=== PATIENT | male | born 1985 | race Caucasian/White ===

== ENCOUNTER 2017-10-14 17:09 | Emergency (ER) | payer MEDICAID, OTHER ==
[2017-10-14 17:16] VITALS: BP 124/87
[2017-10-14] MEDS ORDERED: HYDROCOD/APAP 5/325 PREPACK#6 BTL TAKEHOME ONE (17:31)
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
== END 2017-10-14 17:48 | disposition home or self-care (01) ==
LOC: CED 17:09
DX: H72.92 Unspecified perforation of tympanic membrane, left ear (principal); F17.200 Nicotine dependence, unspecified, uncomplicated